=== PATIENT | female | born 1945 | race Caucasian/White ===

== ENCOUNTER 2023-10-24 05:07 | Inpatient (IN) | payer MEDICARE, OTHER ==
[~2023-10-24] VITALS: Ht 162.6 cm; Wt 81.7 kg
[2023-10-24] VITALS (7 sets, daily range): BP systolic 88–104; BP diastolic 46–67; TEMP 96.3–98.6; O2SAT 95–98
[2023-10-24] MEDS ORDERED: BUPIVACAINE 0.5 % PF 150 MG/30 ML VIAL ONE (06:13)
[2023-10-24] MEDS ORDERED: POLYMYXIN B SULFATE 500,000 UNITS ONE (06:14)
[2023-10-24] MEDS ORDERED: FENTANYL PF 100MCG/2ML AMPUL ONE (06:22)
[2023-10-24] MEDS ORDERED: MIDAZOLAM HCL 2 MG/2ML VIAL ONE (06:22)
[2023-10-24] MEDS ORDERED: TRANEXAMIC ACID 3,000 MG in SODIUM CHLORIDE IRRIG SOLUTION 70 ML IR ONE (07:00)
[2023-10-24] MEDS ORDERED: TRANEXAMIC ACID 1,000 MG/10 ML VIAL ONE (07:01)
[2023-10-24] MEDS ORDERED: ACETAMINOPHEN ES 500 MG TABLET ONE (09:20)
[2023-10-24] MEDS ORDERED: diphenhydrAMINE HCL 25 MG CAPSULE PO PRN (10:00)
[2023-10-24] MEDS ORDERED: MAGNESIUM HYDROXIDE 30 ML UDC PO PRN (10:00)
[2023-10-24] MEDS ORDERED: MAG HYDROX/AL HYDROX/SIMETH 30 ML UDC PO PRN (10:00)
[2023-10-24] MEDS ORDERED: MENTHOL/CETYLPYRD (CEPACOL) 1 LOZ LOZENGE PO PRN (10:00)
[2023-10-24] MEDS: IV D5/0.45 NACL 1,000 ML IV PRN (10:49)
[2023-10-24] MEDS: oxyCODONE IR immediate release 5 MG TABLET PO PRN (11:52)
[2023-10-24] MEDS ORDERED: VITA1TAB56 PO (13:31)
[2023-10-24] MEDS ORDERED: CALC-89 PO ×2 (13:31)
[2023-10-24] MEDS ORDERED: ATOR10TA PO (13:31)
[2023-10-24] MEDS ORDERED: UBID200C35 PO (13:31)
[2023-10-24] MEDS ORDERED: OMEG1CAP46 PO (13:31)
[2023-10-24] MEDS ORDERED: FENO134C PO (13:31)
[2023-10-24] MEDS ORDERED: APIX5TAB PO (13:31)
[2023-10-24] MEDS: ANCEF 1 GM/50 ML D5W IV SCH (15:07)
[2023-10-24] MEDS: DOCUSATE SODIUM 100 MG CAPSULE PO SCH (18:10)
[2023-10-24] MEDS: FAMOTIDINE (20 MG) 20 MG TABLET PO SCH (20:16)
[2023-10-24] MEDS: ATORVASTATIN 10 MG TABLET PO SCH (21:06)
[2023-10-24] MEDS ORDERED: ONDANSETRON HCL/PF 4 MG/2 ML VIAL IV PRN (22:30)
[2023-10-24] MEDS ORDERED: ZOLPIDEM TARTRATE 5 MG TABLET PO PRN (22:30)
[2023-10-24] MEDS ORDERED: ACETAMINOPHEN 325 MG TABLET PO PRN ×2 (22:30)
[2023-10-24] MEDS ORDERED: SENNOSIDES 8.6 MG TABLET PO PRN (22:30)
[2023-10-24] MEDS ORDERED: HYDROCODONE/APAP 5/325MG TABLET PO PRN (22:30)
[2023-10-25] MEDS: oxyCODONE IR immediate release 5 MG TABLET PO PRN (00:44)
[2023-10-25] MEDS: HYDROMORPHONE 1 MG/1 ML DISP.SYRIN IM/IV PRN (03:13)
[2023-10-25] MEDS: ONDANSETRON HCL/PF 4 MG/2 ML VIAL IV PRN (03:24)
[2023-10-25 07:14] LABS: HEMOGLOBIN 10.7 g/dL (11.5-14.8)
[2023-10-25 07:30] VITALS: BP 124/45; TEMP 98.7; O2SAT 96
[2023-10-25] MEDS: APIXABAN 5 MG TABLET PO SCH (08:15)
[2023-10-25] MEDS: SENNOSIDES 8.6 MG TABLET PO SCH (10:19)
[2023-10-25 16:00] VITALS: BP 146/55; TEMP 98.1; O2SAT 97
[2023-10-25 20:00] VITALS: BP 131/54; TEMP 98.2; O2SAT 96
[2023-10-25] MEDS ORDERED: BISACODYL SUPP (10 MG) 10 MG/SUPP.RECT SUPP.RECT RC PRN (22:30)
[2023-10-26 07:00] VITALS: BP 124/45; TEMP 98.1; O2SAT 94
== END 2023-10-26 14:56 | disposition home or self-care (01) | DRG 470 ==
LOC: DS 05:07 → MED 11:36
PROC: 0SRC0J9 Replacement of Right Knee Joint with Synthetic Substitute, Cemented, Open Approach (ICD-10-PCS; principal; 2023-10-24)
DX: M17.11 Unilateral primary osteoarthritis, right knee (principal); D68.59 Other primary thrombophilia; I48.0 Paroxysmal atrial fibrillation; G43.909 Migraine, unspecified, not intractable, without status migrainosus; Z88.0 Allergy status to penicillin; E78.00 Pure hypercholesterolemia, unspecified; H91.90 Unspecified hearing loss, unspecified ear; Z79.01 Long term (current) use of anticoagulants; Z79.899 Other long term (current) drug therapy; Z80.0 Family history of malignant neoplasm of digestive organs; Z82.5 Family history of asthma and other chronic lower respiratory diseases; Z83.3 Family history of diabetes mellitus
CPT/HCPCS: 36415; 85027-TC; 86850-TC; 97110-TC; 97116-TC; 97530-TC; A4217; C1713; C1776; G0378; J0690; J1100; J1170; J1885; J2250; J2405; J2704; J2765; J3010; J3490; J7030; J7060; L1830; Q0163